=== PATIENT | female | born 1960 | race Caucasian/White ===

== ENCOUNTER 2022-12-03 13:36 | Emergency (ER) | payer BC ==
[~2022-12-03 13:36] MED LIST: Iopamidol-370 76% 500 ML 1 ML ONE
[2022-12-03 14:05] LABS: #Basophils 0.1 thou/uL (0.0-0.2); #Eosinphils 0.5 thou/uL (0.0-0.7); #Lymphocytes 2.5 thou/uL (1.20-3.40); #Neutrophils 7.9 thou/uL (1.40-6.50); %Basophils 0.5 % (0.0-1.0); %Eosinophils 4.2 % (0.0-10.0); %Lymphocytes 21.1 % (21.0-51.0); %Monocytes 8.4 % (0.0-10.0); %Neutrophils 65.9 % (42.0-75.0); Hemoglobin 14.2 g/dL (12.0-16.0); Mean Corpuscular HGB CONC 34.3 g/dL (32.0-36.0); Mean Corpuscular Hemoglobin 31.2 pg (27.0-31.0); Mean Corpuscular Volume 90.9 fl (78.0-98.0); Mean Platelet Volume 7.5 fL (7.4-10.4); Platelet Count 179 10x3/uL (130-400); RBC Distribution Width 12.3 % (11.5-14.5); Red Blood Cell (RBC) Count 4.55 mill/uL (4.20-5.40)
[2022-12-03 14:57] LABS: Bilirubin Negative (Negative); Blood, Urine Negative (Negative); Clarity Clear (Clear); Glucose, Urine (Dipstick) Normal (Negative); Ketone, Urine Negative (Negative); Leukocyte Negative Leu/uL (Negative); Nitrite Negative (Negative); Protein, Urine (Dipstick) 10 mg/dL (Neg-Trace); Specific Gravity, Urine 1.019 (1.002-1.036); Urobilinogen Normal mg/dL (Less than 2)
[2022-12-03] MEDS ORDERED: Ketorolac Tromethamine 30 MG/ML VIAL ONE (15:23)
[2022-12-03 16:08] LABS: Albumin 4.5 g/dL (3.4-4.8)
[2022-12-03 16:10] LABS: Chloride 105 mmol/L (98-107); Potassium 4.2 mmol/L (3.5-5.1); Sodium 139 mmol/L (136-145)
[2022-12-03 16:11] LABS: Globulin 3.1 g/dL (2.4-3.5); Glucose 89 mg/dL (80-115); Protein, Total 7.6 g/dL (5.8-8.1)
[2022-12-03 16:12] LABS: Anion Gap 14 mmol/L (10-20); Carbon Dioxide 24 mmol/L (23-31)
[2022-12-03 16:13] LABS: Bilirubin, Total 0.3 mg/dL (0.2-1.2)
[2022-12-03 16:14] LABS: Alkaline Phosphatase 82 U/L (40-110)
[2022-12-03 16:15] LABS: BUN (Urea Nitrogen) 18 mg/dL (9.8-20.1); Calc. Creatinine Clearance 0 mL/min (70-130); Estimated GFR 77
[2022-12-03 16:16] LABS: AST (SGOT) 21 U/L (5-34)
[2022-12-03 16:17] LABS: ALT (SGPT) 17 U/L (8-55); Lipase 25 U/L (8-78)
== END 2022-12-03 17:25 | disposition home or self-care (01) ==
LOC: ERS 13:36
DX: K59.00 Constipation, unspecified (principal); E11.9 Type 2 diabetes mellitus without complications; E78.5 Hyperlipidemia, unspecified
CPT/HCPCS: 36415; 74177; 80053; 81003; 83690; 85025; 96374; J1885; Q9967